=== PATIENT | female | born 1990 | race African-American/Black ===

== ENCOUNTER 2018-03-06 18:25 | Emergency (ER) | payer OTHER, MEDICAID ==
[2018-03-06] MEDS: PANTOPRAZOLE (EC) 40 MG TAB PO (21:52)
[2018-03-06] MEDS: LIDOCAINE/MYLANTA 40 ML BTL PO (21:52)
[2018-03-06] MEDS: KETOROLAC 15 MG INJ IM (21:56)
[2018-03-06 23:02] LABS: URINE BLOOD (Dip) POC 2+ (NEGATIVE); URINE GLUCOSE (Dip) POC Negative (NEGATIVE); URINE KETONES (Dip) POC Negative (NEGATIVE); URINE LEUKOCYTE EST (Dip) POC Negative (NEGATIVE); URINE NITRITE (Dip) POC Negative (NEGATIVE); URINE TOTAL PROTEIN POC Negative (NEGATIVE)
[2018-03-06 23:02] LABS: URINE PH (Dip) POC 6.5 (5.0-8.5)
== END 2018-03-07 00:03 | disposition home or self-care (01) ==
LOC: FTE 03-07 00:03
DX: R10.13 Epigastric pain (principal)
CPT/HCPCS: 81003; 81025; 96372; 99284-25